=== PATIENT | female | born 1985 | race African-American/Black ===

== ENCOUNTER 2018-05-31 09:07 | Emergency (ER) | payer OTHER ==
[~2018-05-31] VITALS: Ht 167.6 cm; Wt 82.0 kg
[2018-05-31 09:20] VITALS: BP 125/68
== END 2018-05-31 12:52 | disposition left against medical advice (07) ==
LOC: ER 12:21
DX: K08.89 Other specified disorders of teeth and supporting structures (principal); Z53.21 Procedure and treatment not carried out due to patient leaving prior to being seen by health care provider
CPT/HCPCS: 81025